=== PATIENT | female | born 1945 | race Caucasian/White ===

== ENCOUNTER → 2019-04-16 | Day surgery (SDC) | payer MEDICARE ==
[~2019-04-16] MED LIST: AMLODIPINE BESY10 MG PO; ASPIR 8181 MG PO; ATIVAN1 MG PO; CARVEDILOL12.5 MG PO; CARVEDILOL3.125 MG PO; FENTANYL CITRATE/PF 100MCG/2 ML INJ ONE; GABAPENTIN300 MG PO; LOSARTAN POTAS100 MG PO; METFORMIN HCL500 MG PO; MIDAZOLAM HCL 2 MG/2 ML VIAL ONE; OR PHACO EYE KIT ONE; PAXIL40 MG; PREOP PHACO EYE KIT ONE; SIMVASTATIN20 MG PO; TOBRAMYCIN/DEXAMETHASONE(OPTH) 3.5 GM TUBE ONE; TRAMADOL HCL100 MG PO
--- OUTSIDE RECORDS SUMMARY | 2019-04-16 09:31 | XMS REPORT | Summary of Care ---
Author Author Estelle Francisco M.A. Unknown Address Unknown Phone Unavailable Care Team Providers Care Rotary Bar Operator Name Role Phone PHILIPP CHILD M.D. Unavailable SYLWIA JOSEPH M.D. 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 DO NOT APPLY MORE THAN 16 GRAMS DAILY TO ANY ONE AFFECTED JOINT Quantity: 9 SYLWIA JOSEPH M.D. * Start : 04-Jan-2018 Active 100 GM Tube Meloxicam 7.5 MG Oral Tablet TAKE 1 TABLET BY MOUTH EVERY DAY NEEDED FOR PAIN * Quantity: 90 Refills: 1 SYLWIA JOSEPH M.D. * Start : 27-Mar-2018 Active Ofloxacin 0.3 % Otic Solution * Refills: 0 Active Hydrocortisone-Acetic Acid 1-2 % Otic Solution 3-4 drops to both ears TID * Quantity: 1 Refills: 1 PHILIPP CHILD M.D. Start : 18-Dec-2018 Active 10 ML Bottle Allergies and Adverse Reactions Name Dates Details No Known Drug Allergies (Allergy) Status: Active Past Medical History Name Dates Details History of arthritis (V13.4, Z87.39) Status: Resolved History of cataract (V12.49, Z86.69) Status: Resolved History of Depressive disorder (311, F32.9) Status: Resolved History of diabetes mellitus (V12.29, Z86.39) Status: Resolved History of hypertension (V12.59, Z86.79) Status: Resolved Procedures Procedure Dates Details History of Neck Surgery Completed History of Stomach surgery Completed History of Foot surgery Completed History of Hysterectomy Completed History of Gallbladder Surgery Completed Immunization Name Dates Details Immunizations not documented Social History Name Dates Details Unknown if ever smoked Vital Signs Date Test Result Details [id number] BP Systolic 152 mm[Hg] Status: BP Diastolic 95 mm[Hg] Status: Height 62 in Status: Weight 216 lb Status: Body Mass Index Calculated 39.51 kg/m2 Status: Body Surface Area Calculated 1.98 m2 Status: Heart Rate 85 /min Status: [id number] BP Systolic 115 mm[Hg] Status: BP Diastolic 82 mm[Hg] Status: Height 62 in Status: Weight 216 lb Status: Body Mass Index Calculated 39.51 kg/m2 Status: Body Surface Area Calculated 1.98 m2 Status: Heart Rate 82 /min Status: Results Date Description Value Details Results not documented Plan of Care Name Dates Details Planned Observations Planned Goals not documented Planned Encounters Appointment; PHILIPP CHILD M.D. On: 04-Jan-2019 14:30 Interventions Provided Plan* 1. Infection resolving. Debris removed today and powder applied. Dry ear precautions. Once cleared will give some steroid cream for the outside of ear. Fu in 1 week . Instructions Name Dates Details Instructions not documented Encounters Appointment; SYLWIA JOSEPH M.D. Encounter Diagnosis: Problem not documented On: 04-Jan-2018 13:00 Appointment; SYLWIA JOSEPH M.D. Encounter Diagnosis: Problem not documented On: 25-Apr-2018 15:15 Appointment; SYLWIA JOSEPH M.D. Encounter Diagnosis: Problem not documented On: 16-May-2018 10:45 Appointment; SYLWIA JOSEPH M.D. Encounter Diagnosis: Problem not documented On: 30-May-2018 11:15 Appointment; SYLWIA JOSEPH M.D. Encounter Diagnosis: Problem not documented On: 06-Jun-2018 11:15 Appointment; PHILIPP CHILD M.D. Encounter Diagnosis: Problem not documented On: 31-Aug-2018 13:00 Appointment; PHILIPP CHILD M.D. Encounter Diagnosis: Problem not documented On: 18-Dec-2018 8:45 Appointment; PHILIPP CHILD M.D. Encounter Diagnosis: Problem not documented On: 28-Dec-2018 10:30
--- OUTSIDE RECORDS SUMMARY | 2019-04-16 09:31 | XMS REPORT ---
Author Author [facility] Address Unknown Phone Unavailable Care Team Providers Care Cold Mill Inspector Name Role Phone Unavailable Unavailable Problems This patient has no known problems. Allergies, Adverse Reactions, Alerts This patient has no known allergies or adverse reactions. Medications This patient has no known medications. Encounters Start Date/Time End Date/Time Encounter Type Admission Type Attending [facility] Facility Care Department Encounter ID 2018-12-10 11:08:00 2018-12-10 11:08:00 Emergency E [id number]
[2019-04-16 12:22] VITALS: BP 103/61
== END | disposition home or self-care (01) ==
LOC: OR 09:27
PROVIDERS: ATTEND Ophthalmology
DX: H25.12 Age-related nuclear cataract, left eye (principal); I10 Essential (primary) hypertension; E11.9 Type 2 diabetes mellitus without complications; F32.9 Major depressive disorder, single episode, unspecified; F41.9 Anxiety disorder, unspecified; Z79.82 Long term (current) use of aspirin; Z79.84 Long term (current) use of oral hypoglycemic drugs
CPT/HCPCS: 36415; 66984; 82948; J2250; J3010

== ENCOUNTER → 2019-04-30 | Day surgery (SDC) | payer MEDICARE ==
[~2019-04-30] MED LIST changes: -FENTANYL CITRATE/PF 100MCG/2 ML INJ ONE; -MIDAZOLAM HCL 2 MG/2 ML VIAL ONE; -TOBRAMYCIN/DEXAMETHASONE(OPTH) 3.5 GM TUBE ONE
[2019-04-30 08:45] LABS: BASOPHILS # (AUTO) 0.1 (0.0-0.1); BASOPHILS % 0.8 % (0.0-1.0); EOSINOPHILS # (AUTO) 0.3 (0.0-0.4); EOSINOPHILS % 2.8 % (0.0-6.0); HEMATOCRIT 42.9 % (34.2-44.1); HEMOGLOBIN 13.7 g/dL (12.0-16.0); LYMPHOCYTES # (AUTO) 1.8 (1.0-3.2); LYMPHOCYTES % 19.8 % (18.0-39.1); MEAN CORPUSCULAR HEMOGLOBIN 29.6 pg (28-32); MEAN CORPUSCULAR HGB CONC 31.9 g/dL (31-35); MEAN CORPUSCULAR VOLUME 92.7 fL (81-99); MONOCYTES # (AUTO) 0.6 (0.2-0.8); MONOCYTES % 6.6 % (4.4-11.3); NEUTROPHILS # (AUTO) 6.5 (2.1-6.9); NEUTROPHILS % 69.7 % (38.7-80.0); PLATELET COUNT 278 x10e3/uL (140-360); RED BLOOD COUNT 4.63 x10e6/uL (3.6-5.1)
[2019-04-30 10:56] VITALS: BP 109/54
== END | disposition home or self-care (01) ==
LOC: OR 07:23
PROVIDERS: ATTEND Ophthalmology
DX: H25.11 Age-related nuclear cataract, right eye (principal); E11.9 Type 2 diabetes mellitus without complications; I10 Essential (primary) hypertension; F41.9 Anxiety disorder, unspecified; F32.9 Major depressive disorder, single episode, unspecified; Z79.82 Long term (current) use of aspirin; Z79.84 Long term (current) use of oral hypoglycemic drugs
CPT/HCPCS: 36415; 82948; 85025